=== PATIENT | female | born 1980 | race Caucasian/White ===

== ENCOUNTER 2021-04-29 20:00 | Outpatient (CLI) | payer OTHER, SELFPAY ==
--- NOTE | 2021-05-19 10:22 | WPDSLEEPSTUD ---
Sleep Study Date of Study: 04/29/21 <Sonja Pacheco, DO - Last Filed: 05/19/21 10:52> Ordering Provider: Cathy Mcneal, [employer]ION[employer]ILITIES MANAGER[facility] <Sonja Pacheco, - Last Filed: 05/19/21 10:52> Interpreting Physician: Sonja Pacheco DO <Sonja Pacheco, - Last Filed: 05/19/21 10:52> Sleep Study Type: Polysomnogram <Sonja Pacheco, - Last Filed: 05/19/21 10:52> Height: 1.63 m <Sonja Pacheco - Last Filed: 05/19/21 10:52> Weight: 133.81 kg <Sonja Pacheco - Last Filed: 05/19/21 10:52> Body Mass Index: 50.6 <Sonja Pacheco - Last Filed: 05/19/21 10:52> Neck Circumference (inches): 14.5 <Sonja Pacheco - Last Filed: 05/19/21 10:52> [place]: 16 <Sonja Pacheco - Last Filed: 05/19/21 10:52> Reason for Sleep Study The patient has unrefreshing sleep and daytime hypersomnia. Hx of previously diagnosed CLAU and was on PAP Therapy. She had a PSG done at [facility] on 08/23/2020 that showed an AHI of 1.8. She also had a PLM index of 8.6. The patient didn't feel like the sleep study was accurate and wanted to retest at a different facility. <Sonja Pacheco, DO - Last Filed: 05/19/21 10:52> Sleep History The patient is a 41-year-old female with asthma, depression, nightmares, anxiety, GERD and previously diagnosed CLAU that had a PSG ordered by her [employer] officer due to unrefreshing sleep and daytime hypersomnia. The patient had a PSG done a [facility] that showed an overall AHI of 1.8. The patient requested to be retested. The patient was diagnosed with sleep apnea in 2016. She used CPAP until November 2017. The patient frequently awakens from sleep short of breath. She occasionally awakens at night with heartburn, belching or cough. She constantly snores but it is really loud enough that others complain. She frequently has trouble sleeping when she has a cold. She frequently wakes up gasping for air throughout the night. She constantly has breathing problems at night observed by others. She rarely sweats excessively at night. She constantly notices heart palpitations throughout the night. She constantly falls asleep during the day But never while driving. She denies having trouble work or school due to sleepiness. She denies sleep paralysis and cataplexy. She occasionally experiences vivid dreamlike scenes upon awakening or falling asleep. She occasionally has nightmares. She frequently has thoughts racing through her mind. She constantly feels sad, depressed and anxious. The patient occasionally notices parts of her body jerk. She rarely kicks throughout the night. She denies crawling and aching feelings in her legs. She occasional has leg pain during the night. She denies grinding her teeth during sleep awakening with jaw pain in the morning. She is frequently bothered by pain during the day and awakened by pain during the night. She occasionally wakes up feeling stiff in the morning with sore and achy muscles. She goes to bed between midnight and 1:00 a.m. on both weekdays and weekends. It takes her between 1 and 2 hours to fall asleep. She wakes up 1-2 times per night to urinate. She is unsure how long it takes her to fall back asleep. She wakes between 6 and 7:00 a.m. on weekdays and between 6 and 8:00 a.m. on the weekends. She typically gets less than 6 hours of sleep per night. She will stay in bed up to an hour after awakening on the weekends. The patient leak currently lives with her and 2 kids. She does not consume any caffeinated beverages within 2 hours of bedtime. She will sometimes exercise before bedtime. She will watch TV and occasionally Lotus for falling asleep. She does take naps in the afternoon or the evening that are sometimes refreshing. She drinks 1 caffeinated beverage per day. She denies tobacco, alcohol recreational drug use. <Sonja Pacheco, DO - Last Filed:
[2021-05-19 10:46] VITALS: BMI 50.6
== END 2021-04-30 08:09 | disposition home or self-care (01) ==
LOC: ANHCSM 04-30 08:01
PROVIDERS: PCP Nurse Practitioner; Visit Provider Nurse Practitioner
DX: G47.33 Obstructive sleep apnea (adult) (pediatric) (principal)
CPT/HCPCS: 95810